=== PATIENT | female | born 1990 | race Caucasian/White ===

== ENCOUNTER 2016-11-09 22:05 | Emergency (ER) | payer OTHER ==
[~2016-11-09] VITALS: Wt 67.0 kg
[~2016-11-09 22:05] MED LIST: FAMO-96 PO; FERR27TA PO; HYDR-3498 PO; NAPR-260 PO; ONDA4TAB8 PO; PREN1TAB49 PO
[2016-11-09] MEDS ORDERED: ONDANSETRON (ODT) 4 MG TAB ODT STA (23:39)
[2016-11-09] MEDS ORDERED: ACETAMINOPHEN 500 MG TAB PO STA (23:39)
[2016-11-10 00:28] LABS: URINE BLOOD (Dip) POC Negative (NEGATIVE)
[2016-11-10] MEDS ORDERED: ACET500C5 PO (01:37)
[2016-11-10] MEDS ORDERED: ONDA4TAB14 PO (01:37)
--- NOTE | 2016-11-10 01:41 | ERD ---
ER Documentation Chief Complaint Date/Time DATE: 11/10/16 TIME: 01:40 Chief Complaint CHILLS/BODYACHE/DIARRHEA X1DAY HPI 25-year-old female complaining of chills, body ache, and diarrhea 1 day. She reports lower abdominal pain, cramping like. She had more than 10 episodes diarrhea today, and one episode of vomiting. The diarrhea is nonbloody. The vomiting is not bloody and nonbilious. Her LMP was 10/24/2016. Denies cough or runny nose. Denies shortness of breath. Denies dysuria. ROS All systems reviewed and are negative except as per history of present illness. Medications Home Meds Active Scripts Ondansetron (Ondansetron Odt) 4 Mg Tab.rapdis, 4 MG PO Q6H Y for NAUSEA AND/OR VOMITING, #10 TAB Prov:RAVINDER SHABAZZ. [employer] 11/10/16 Acetaminophen* (Tylophen*) 500 Mg Capsule, 1 CAP PO Q6H Y for PAIN AND OR ELEVATED TEMP, #20 CAP Prov:RAVINDER SHABAZZ. [employer] 11/10/16 Naproxen* (Naprosyn*) 500 Mg Tablet, 500 MG PO BID Y for PAIN AND/OR INFLAMMATION, #30 TAB Prov:CHAITANYA GARCIA DO 07/30/15 Hydrocodone Bit-Acetaminophen* (Canaan*) 5-325 Mg Tab, 1 TAB PO Q6 Y for PAIN, # 14 TAB Prov:CHAITANYA GARCIA DO 07/30/15 Ondansetron Hcl* (Zofran*) 4 Mg Tablet, 4 MG PO Q6H for NAUSEA AND/OR VOMITING, #20 TAB Prov:MATHEW MARIN 01/28/15 Famotidine* (Pepcid*) 20 Mg Tablet, 20 MG PO DAILY for 4 Days, TAB Prov:MATHEW MARIN 01/28/15 Hydrocodone Bit-Acetaminophen* (Canaan*) 5-325 Mg Tab, 1 TAB PO Q6 Y for PAIN, # 7 TAB Prov:MATHEW MARIN 01/28/15 Reported Medications Vits W-Ca,Fe,Fa(<1MG) () 1 Tab Tablet, PO DAILY 01/28/12 Famotidine* (Pepcid*) 20 Mg Tablet, PO DAILY 01/28/12 Ferrous Sulfate (Iron) 1 Tab Tablet, PO DAILY 01/28/12 [None] No Conflict Check 01/29/10 Allergies Allergies: Coded Allergies: No Known Allergies (Verified Allergy, Mild, 07/30/15) PMhx/Soc History of Surgery: No Anesthesia Reaction: No Hx Neurological Disorder: No Hx Respiratory Disorders: No Hx Cardiac Disorders: No Hx Psychiatric Problems: No Hx Miscellaneous Medical Probl: Yes (LEUKEMIA, "swollen liver") Hx Alcohol Use: Yes (OCCASIONAL) Hx Substance Use: No Hx Tobacco Use: Yes (OCCASIONAL) Smoking Status: Current some day smoker Physical Exam Vitals Vital Signs Date Time Temp Pulse Resp B/P Pulse Ox O2 Delivery O2 Flow Rate FiO2 11/10/16 03:05 98.4 86 18 134/77 98 Room Air 11/09/16 22:09 100.2 104 18 139/84 100 Physical Exam General: Well-developed, well-nourished, conscious and coherent, in no distress Skin: Warm and dry without rash, good texture and turgor Head: Normocephalic without evidence of trauma Eyes: Sclera and conjunctivae normal; pupils equal, round, and reactive to light; extraocular movements are intact Neck: Supple without meningismus or adenopathy. Carotids are equal. Trachea midline. No bruits or JVD Chest: Normal AP diameter. Good expansion without retractions. Nontender. Lungs are clear to auscultate bilaterally with good tidal volume Heart: Regular rate and rhythm. No murmur, rub, or gallops heard Abdomen: Soft and diffusely tender without masses, guarding, or rebound. Bowel sounds are active. No hepatosplenomegaly Back: Without spinal or CVA tenderness Extremities: Full range of motion. Good strength bilaterally. No clubbing, cyanosis, or edema. Peripheral pulses are intact. Sensation intact Neuro: Alert and oriented 4, GCS 15. Cranial nerves grossly intact. Motor and sensory exams nonfocal. Moves all extremities. Speech clear. Gait normal Results 24 hrs Laboratory Tests Test 11/10/16 00:33 Bedside Urine pH (LAB) 6.0 Bedside Urine Protein (LAB) 1+ Bedside Urine Glucose (UA) Negative Bedside Urine Ketones (LAB) Negative Bedside Urine Blood Negative Bedside Urine Nitrite (LAB) Negative Bedside Urine Leukocyte Esterase (L Negative Current Medications Medications (Trade) Dose Ordered Sig/Juan Daniel Route PRN Reason Start Time Stop Time Status Last Admin Dose Admin Ondansetron HCl (Zofran Odt) 4 mg ONCE STAT ODT 11/09/16 23:39 11/09/16 23:41 DC 11/10/16 00:29 Acetaminophen (Tylenol Tab) 500 mg ONCE STAT PO 11/09/16 23:39 11/09/16 23:41 DC 11/10/16 00:29 Morphine Sulfate (morphine) 4 mg ONCE ONCE IM 11/10/16 02:30 11/10/16 02:31 DC 11/10/16 02:26 Procedures/MDM 25-year-old female presented ED with abdominal pain, vomiting, and diarrhea. Patient was given Tylenol in the ED for pain. Patient stated the pain was relieved for a brief period with Tylenol, but returns. Urine was negative. I doubt ectopic , ovarian torsion, or ruptured ovarian cyst. Urine dip is negative for UTI. Patient is afebrile, does not have any right upper or right lower abdominal tenderness on palpation. I doubt acute appendicitis, cholecystitis or other acute abdomen. Patient's symptoms is consistent with that of viral gastroenteritis. Patient does not have any active vomiting, is able to maintain by mouth fluid intake. Patient appears well, stable for discharge and outpatient management. Advised patient to return to ED tomorrow if her abdominal pain does not resolve or worsens. Medical decision making shared with patient and family. Education provided to patient and family. Patient and family expressed understanding of the plan. Medications on discharge: Ibuprofen. Follow-up: Primary care provider in 2-3 days or return to ED if worse. Disclaimer: Inadvertent spelling and grammatical errors are likely due to EHR/ dictation software use and do not reflect on the overall quality of patient care. Also, please note that the electronic time recorded on this note does not necessarily reflect the actual time of the patient encounter. Departure Diagnosis: Primary Impression: Viral syndrome Condition: Stable Patient Instructions: Viral Syndrome (Adult) Referrals: COMM[facility]ITY CLIN[facility] YOU HAVE RECEIVED A MEDICAL SCREENING EXAM AND THE RESULTS INDICATE THAT YOU DO NOT HAVE A CONDITION THAT REQUIRES URGENT TREATMENT IN THE EMERGENCY DEPARTMENT. FURTHER EVALUATION AND TREATMENT OF YOUR CONDITION CAN WAIT UNTIL YOU ARE SEEN IN YOUR DOCTORS OFFICE WITHIN THE NEXT 1-2 DAYS. IT IS YOUR RESPONSIBILITY TO MAKE AN APPOINTMENT FOR FOLOW-UP CARE. IF YOU HAVE A PRIMARY DOCTOR --you should call your primary doctor and schedule an appointment IF YOU DO NOT HAVE A PRIMARY DOCTOR YOU CAN CALL OUR PHYSICIAN REFERRAL HOTLINE AT IF YOU CAN NOT AFFORD TO SEE A PHYSICIAN YOU CAN CHOSE FROM THE FOLLOWING [facility] CL[facility] [address] [facility] [address] [email or web address] [address] [facility] [address] [facility] [address] [facility]. [facility] [address] Additional Instructions: Call your primary care doctor TOMORROW for an appointment during the next 2-3 days.See the doctor sooner or return here if your condition worsens before your appointment time. RAVINDER SHABAZZ NP Nov 10, 2016 01:41
[2016-11-10] MEDS ORDERED: morphine 10 MG INJ IM ONE (02:30)
[2016-11-10 03:05] VITALS: BP 134/77; PULSE 86; RESP 18; TEMP 98.4
== END 2016-11-10 03:05 | disposition home or self-care (01) ==
LOC: FTE 22:05
DX: B34.9 Viral infection, unspecified (principal); F17.210 Nicotine dependence, cigarettes, uncomplicated
CPT/HCPCS: 81003; J2270; Z7610; 96372

== ENCOUNTER 2018-02-04 22:00 | Emergency (ER) | END 2018-02-05 01:22 | disposition home or self-care (01) ==

== ENCOUNTER 2018-07-02 09:24 | Emergency (ER) | payer SELFPAY ==
[~2018-07-02] VITALS: Ht 152.4 cm; Wt 65.0 kg
[~2018-07-02 09:24] MED LIST changes: +ACET500C5 PO; +AZIT250T PO; +D-ME473S2 PO; +FERR134T PO; +HYDR-4011 PO; -NAPR-260 PO; +NAPR-985 PO; +NITR-58 PO; +ONDA4TAB14 PO
[2018-07-02 09:30] VITALS: Ht 152.4 cm; Wt 65.0 kg
== END 2018-07-02 11:14 | disposition left against medical advice (07) ==
LOC: FTE 09:24
DX: Z53.21 Procedure and treatment not carried out due to patient leaving prior to being seen by health care provider (principal)